=== PATIENT | male | born 1960 ===

== ENCOUNTER 2022-08-30 06:06 | Day surgery (SDC) | payer MEDICARE, OTHER ==
[~2022-08-30] VITALS: Ht 1899.9 cm; Wt 72.7 kg
[~2022-08-30 06:06] MED LIST: GABA300 PO
--- NOTE | 2022-08-30 07:17 | NUR ---
08/30/22 0717 Ling Muniz VANCOMYCIN ADMINISTRATION STARTED AT 0705 USING IV PUMP PER ORDERS. INFUSING WITHOUT ANY DIFFICULTIES. PT LAYING IN BED TALKING. NO CURRENT COMPLAINTS.
--- NOTE | 2022-08-30 08:16 | NUR ---
08/30/22 0816 Cyndi Evans FIRST DOSE OF TXA STARTED AT 0747 POPLITEAL BLOCK COMPLETE IN OR BY DR MORRISON, SITE CHECK COMPLETE, PATIENT TOLERATED WELL, VSS. 50ML OF ANKLE COCKTAIL INJECTED AT OPSITE BY DR OMER FOR PAIN CONTROL AND HOMEOSTASIS.
[2022-08-30 10:22] VITALS: BP 151/75
== END 2022-08-30 11:35 | disposition home or self-care (01) ==
LOC: ORSCSDS 06:06
PROVIDERS: Podiatrist Foot & Ankle Surgery
PROC: 0SRF0JZ Replacement of Right Ankle Joint with Synthetic Substitute, Open Approach (ICD-10-PCS; principal; 2022-08-30 07:30)
PROC: 0L8N3ZZ Division of Right Lower Leg Tendon, Percutaneous Approach (ICD-10-PCS; principal; 2022-08-30 07:30)
DX: M19.071 Primary osteoarthritis, right ankle and foot (principal); M65.871 Other synovitis and tenosynovitis, right ankle and foot; M24.871 Other specific joint derangements of right ankle, not elsewhere classified; M25.471 Effusion, right ankle; M25.671 Stiffness of right ankle, not elsewhere classified; M25.571 Pain in right ankle and joints of right foot; G47.33 Obstructive sleep apnea (adult) (pediatric)
CPT/HCPCS: A9270; C1776; J0171; J0735; J1100; J1885; J2250; J2405; J2704; J2795; J3010; J3370; J7120